=== PATIENT | female | born 1985 | race Caucasian/White ===

== ENCOUNTER 2017-06-15 19:05 | Emergency (ER) | payer OTHER ==
[~2017-06-15] VITALS: Ht 162.6 cm; Wt 63.6 kg
[2017-06-15 19:12] VITALS: BP 119/85
== END 2017-06-15 21:34 | disposition home or self-care (01) ==
LOC: EXP 19:05 → EME 19:05 → EXP 21:34
PROC: 3E0234Z Introduction of Serum, Toxoid and Vaccine into Muscle, Percutaneous Approach (ICD-10-PCS; principal; 2017-06-15)
DX: S20.211A Contusion of right front wall of thorax, initial encounter (principal); S80.811A Abrasion, right lower leg, initial encounter; V49.40XA Driver injured in collision with unspecified motor vehicles in traffic accident, initial encounter
CPT/HCPCS: 71020